=== PATIENT | male | born 1995 | race Caucasian/White ===

== ENCOUNTER 2024-08-02 07:23 | Emergency (ER) | payer BC, SELFPAY ==
[2024-08-02 07:25] VITALS: BP 143/93; PULSE 75; RESP 16; TEMP 36.4; O2SAT 99; BMI 30.7
--- NOTE | 2024-08-02 07:40 | ED_ITS ---
Discharge Plan Disposition Chief Complaint: Skin/Abscess/Foreign Body Prescriptions Prescriptions: New amoxicillin-pot clavulanate 875-125 mg tablet 1 tab PO BID 10 Days Qty: 20 0RF No Action methylprednisolone [Medrol (Jagdish)] 4 mg tablets,dose pack See Rx Instructions PO PER PKG DIR Qty: 21 0RF Dose Instruction: PO PER PKG DIR Rx Instructions: PO PER PKG DIR Referrals Follow up/Referrals: Cliff Whittaker [Primary Care Provider] - See instructions Activity Restrictions/Add. Instructions Additional Instructions/Restrictions: You have evidence of nasal tip cellulitis that is corresponding to some facial cellulitis. Please return with any high fevers difficulty breathing or other concerns. Clinical Impressions Clinical Impression: Cellulitis of nasal tip, Cellulitis of face Instructions Patient Instructions: DI for Skin Abscess Print Language Print Language: Welsh Discharge ED Provider: Brian Hernandez General Adult HPI General Chief complaint: Skin/Abscess/Foreign Body Stated complaint: persistant nasal pain/redness, face swelling Time Seen by Provider: 08/02/24 07:32 Mode of Arrival: Ambulatory Source of Information: Patient Limitations: No Limitations Description of Symptoms (Recalled from ER Triage Doc. by RN): Patient reports being seen at [facility] on Friday and was told that if he wasn't any better to come back to the hospital to be seen. Reports redness and swelling of his nose. History of Present Illness HPI narrative: Patient is a 28-year-old male presenting today with nasal tip pain and redness as well as pain and swelling over the lateral aspect of his nose and cheek on the left. No fevers or chills. Recently went to the hospital was told he had a sinus infection however he has had no sinus drainage no facial pressure no congestion or rhinorrhea etc. Related Data Previous Rx's ?Medication ?Instructions ?Recorded methylprednisolone 4 mg tablets in See Rx Instructions PO PER PKG DIR 03/14/18 a dose pack (Medrol (Jagdish)) #21 tabs amoxicillin 875 mg-potassium 1 tab PO BID 10 days #20 tabs 08/02/24 clavulanate 125 mg tablet Allergies Allergy/AdvReac Type Severity Reaction Status Date / Time No Known Allergies Allergy Verified 03/14/18 12:02 [facility] Disclaimer: The information contained in this section may have been updated after the patient was seen, as this information can be updated by other users. Social History Smoking Status: Never smoker alcohol intake: never substance use type: denies use current occupational status: other Travel in the last 8 weeks: None Other Medical History Have you received the Flu Vaccine for this season: No ROS Obtained: Yes All systems reviewed & no additional complaints except as documented Physical Exam General General appearance: alert and in no apparent distress Expanded ENT Exam Nose/Mouth Image: 2 1. erythema swelling tenderness 2. swelling and tenderness Respiratory Respiratory exam: Present normal lung sounds bilaterally Cardiovascular Cardiovascular exam: Present regular rate and normal rhythm Neurological Exam Neurological exam: Present alert and oriented X3 Medical Decision Making Medical Records Screening: Per USPSTF and CDC recommendations, given the prevalence of disease in our region, it is our hospital?s policy to screen for HIV and viral Hepatitis for all patients aged 18 and over and those with ongoing risk factors. Chidi Inquiry Pt receiving controlled substance: No Vital Signs: 08/02/24 07:25 Temperature 97.5 F L Temperature Source Oral Pulse Rate [Radial] 75 Respiratory Rate 16 Blood Pressure [Right Arm] 143/93 H Blood Pressure Mean [Right Arm] 109 Blood Pressure Source [Right Arm] Automatic Cuff Blood Pressure Position [Right Arm] Sitting 02 Sat by Pulse Oximetry 99 Oxygen Delivery Method Room Air Medical Decision Narrative: 28-year-old with above history and physical presents today with nasal tip and left facial cellulitis. Does not have any signs or symptoms of a sinus infection. Will treat with antibiotics, Augmentin. Return precautions emphasized patient was discharged in stable condition. Very well-appearing. Critical Care Critical Care Time Critical Care Time: No
[2024-08-02 07:43] VITALS: BP 142/95; PULSE 81; RESP 16; TEMP 36.4; O2SAT 98
--- NOTE | 2024-08-02 09:12 | PC.NURSE ---
pt called about meds, retransmitted to [facility] in [place].
== END 2024-08-02 07:43 | disposition home or self-care (01) ==
PROVIDERS: Emergency Provider Student in an Organized Health Care Education/Training Program; PCP Internal Medicine
DX: L03.211 Cellulitis of face (principal)
CPT/HCPCS: 99283